=== PATIENT | female | born 1985 | race Hispanic/Latino ===

== ENCOUNTER 2018-06-02 07:48 | Emergency (ER) | payer MEDICARE, MEDICAID ==
[2018-06-02 08:59] LABS: #Basophils 0.1 thou/uL (0.0-0.2); #Eosinphils 0.2 thou/uL (0.0-0.7); #Lymphocytes 3.7 thou/uL (1.20-3.40); #Monocytes 0.4 thou/uL (0.11-0.59); #Neutrophils 4.1 thou/uL (1.40-6.50); %Basophils 0.9 % (0.0-1.0); %Eosinophils 2.6 % (0.0-10.0); %Lymphocytes 43.9 % (21.0-51.0); %Monocytes 4.4 % (0.0-10.0); %Neutrophils 48.1 % (42.0-75.0); Hemoglobin 13.4 g/dL (12.0-16.0); Mean Corpuscular HGB CONC 34.6 g/dL (32.0-36.0); Mean Corpuscular Hemoglobin 31.7 pg (27.0-31.0); Mean Corpuscular Volume 91.6 fL (78.0-98.0); Mean Platelet Volume 7.8 fL (7.4-10.4); Platelet Count 284 thou/uL (130-400); RBC Distribution Width 11.7 % (11.5-14.5); Red Blood Cell (RBC) Count 4.24 mill/uL (4.20-5.40); White Blood Cell (WBC) Count 8.4 thou/uL (4.8-10.8)
[2018-06-02 09:10] LABS: ALT (SGPT) 12 U/L (8-55); AST (SGOT) 14 U/L (5-34); Albumin 4.4 g/dL (3.5-5.0); Alkaline Phosphatase 67 U/L (40-150); Anion Gap 13 mmol/L (10-20); BUN (Urea Nitrogen) 12 mg/dL (7.0-18.7); Bilirubin, Total 0.5 mg/dL (0.2-1.2); Calc. Creatinine Clearance 0 mL/min (70-130); Calcium 9.2 mg/dL (7.8-10.44); Carbon Dioxide 22 mmol/L (22-29); Chloride 106 mmol/L (98-107); Estimated GFR-MDRD 84; Globulin 3.2 g/dL (2.4-3.5); Glucose 110 mg/dL (70-105); Potassium 3.4 mmol/L (3.5-5.1); Protein, Total 7.6 g/dL (6.0-8.3); Sodium 138 mmol/L (136-145)
[2018-06-02 09:15] LABS: CKMB 0.5 ng/mL (0-6.6); Troponin I Less than 0.010 ng/mL (< 0.028)
--- NOTE | 2018-06-02 09:28 | RAD ---
SINGLE VIEW OF THE CHEST: Comparison: 01-06-17 History: Chest pain for four days. FINDINGS: Single view of the chest shows a normal sized cardiomediastinal silhouette. There is no evidence of c onsolidation, mass, or pleural effusion. The bones are unremarkable. IMPRESSION: No evidence of acute cardiopulmonary disease. POS: [facility]
--- NOTE | 2018-06-05 21:20 | EKG ---
Test Reason : Blood Pressure : / mmHG Vent. Rate : 079 BPM Atrial Rate : 079 BPM P-R Int : 128 ms QRS Dur : 132 ms QT Int : 430 ms P-R-T Axes : 048 004 -10 degrees QTc Int : 493 ms Normal sinus rhythm Right bundle branch block Abnormal ECG Confirmed by LUIS PEDRO DO ([id number]), film editor ADOLPH BARBER ([id number] on 06/05/2018 9:20:10 PM Referred By: Confirmed By:LUIS PEDRO DO
== END 2018-06-02 10:56 | disposition home or self-care (01) ==
LOC: ERS 07:48
DX: R07.89 Other chest pain (principal)
CPT/HCPCS: 36415; 71045; 80053; 82553; 84484; 85025; 93005

== ENCOUNTER 2019-09-07 13:43 | Emergency (ER) | payer MEDICARE, MEDICAID ==
[~2019-09-07 13:43] MED LIST: Iopamidol-370 76% 500 ML 1 ML ONE
--- NOTE | 2019-09-07 14:32 | RAD ---
RIGHT SHOULDER THREE VIEWS: HISTORY: Injury. Right shoulder pain. FINDINGS: No acute fracture or dislocation is identified. POS: [facility]
[2019-09-07] MEDS ORDERED: Ketorolac Tromethamine 30 MG/ML VIAL ONE (15:11)
[2019-09-07 16:44] LABS: Bacteria/HPF None Seen HPF (None Seen); Bilirubin Negative (Negative); Blood, Urine 1+ (Negative); Clarity Clear (Clear); Glucose, Urine (Dipstick) Normal (Negative); Leukocyte Negative Leu/uL (Negative); Nitrite Negative (Negative); Protein, Urine (Dipstick) 10 mg/dL (Neg-Trace); Squamous Epithelial 0-3 HPF (0-3); Urobilinogen Normal mg/dL (Less than 2); WBC/HPF 0-3 HPF (0-3)
[2019-09-07 16:46] LABS: Pregnancy Test - Urine (BHCG) Negative (Negative); Pregu Control Background? CLEAR/WHITE (CLR/WHITE); Pregu Control Bar Appear? YES (CONTROL BAR); Specific Gravity 1.028 (1.002-1.036)
--- NOTE | 2019-09-07 17:24 | CT ---
EXAM: CT abdomen and pelvis with IV contrast PROVIDED CLINICAL HISTORY: Trauma COMPARISON: None FINDINGS: The visualized lung bases are free of significant opacity. The solid abdominal organs demonstrate an unremarkable CT appearance. Changes of prior cholecystectom y are seen. There is no bowel dilatation, intraperitoneal inflammatory fat stranding, free fluid or free air appa rent. There is no evidence for appendicitis. There is mild reticulation of the subcutaneous adipose layer of the left lateral abdominal wall, presumably reflecting bruising. No regional lymph node enlargement apparent. The regional major vascular structures appear unremarkab le. The osseous structures demonstrate no concerning lytic or blastic lesions. Coronal and sagittal spinal reconstructions demonstrate maintenance of vertebral body heights and nor mal spinal alignment. There is no evidence for fracture. IMPRESSION: Bruising involving the subcutaneous adipose layer of the left lateral abdominal wall. No additional e vidence for traumatic abnormality involving the abdomen and pelvis.
== END 2019-09-07 18:05 | disposition home or self-care (01) ==
LOC: ERS 13:43
DX: S40.011A Contusion of right shoulder, initial encounter (principal); S30.1XXA Contusion of abdominal wall, initial encounter; V43.62XA Car passenger injured in collision with other type car in traffic accident, initial encounter
CPT/HCPCS: 74177; 81003; 81015; 81025; 96374; J1885; Q9967

== ENCOUNTER 2020-08-30 14:28 | Outpatient (CLI) | payer MEDICARE, MEDICAID ==
[~2020-08-30 14:28] MED LIST changes: -Iopamidol-370 76% 500 ML 1 ML ONE; +Magnevist 469MG/ML 20 ML VIAL ONE
--- NOTE | 2020-08-30 16:28 | MRI ---
MRI OF BRAIN WITH AND WITHOUT CONTRAST: 08/30/20 INDICATIONS: Optic disc atrophy. Comparison made to prior MRI of brain exams dated 12/18/16, 05/09/13 and 09/07/09. FINDINGS: Ventricles have normal size and position. There is no evidence of restricted diffusion. There is no e vidence of mass or edema within the brain parenchyma. There is no evidence of white matter abnormalit y. Evaluation of the orbits was performed with multiplanar and multisequential imaging in sagittal and c oronal planes. No abnormal enhancement seen within the brain. The orbits are unremarkable. The extra-ocular muscles appear normal and symmetric. Globes are unremar kable. Pituitary is unremarkable. Optic nerves appear normal and symmetric. Ophthalmic veins are norm al in appearance. Lacrimal glands are normal in appearance. IMPRESSION: Unremarkable MRI of the brain and orbits. POS: [facility]
== END 2020-08-30 14:29 | disposition home or self-care (01) ==
LOC: BICMRI 14:28
PROVIDERS: ATTEND Ophthalmology
DX: H47.20 Unspecified optic atrophy (principal)
CPT/HCPCS: 70553; A9579